=== PATIENT | male | born 1995 | race Caucasian/White ===

== ENCOUNTER 2016-11-23 07:34 | Day surgery (SDC) | payer OTHER ==
[2016-11-19 14:04] VITALS: BMI 34.9
--- NOTE | 2016-11-23 08:11 | HP ---
Admitting History and Physical - Admission Chief Complaint: Chronic otitis media History Source: Patient, Medical Record Limitations to Obtaining History: No Limitations - Smoking History Smoking history: Never smoked Have you smoked in the past 12 months: No - Alcohol/Substance Use Hx Alcohol Use: Yes (RARE) Home Medications - Allergies Allergies/Adverse Reactions: Allergies Allergy/AdvReac Type Severity Reaction Status Date / Time No Known Drug Allergies Allergy Verified 11/23/16 07:58 - Home Medications Home Medications: Ambulatory Orders Cholecalciferol (Vitamin D3) [Vitamin D3] 2,000 unit PO DAILY 11/19/16 Physical Examination Vital Signs: Vital Signs Temperature 97.8 F 11/23/16 07:55 Pulse Rate 58 L 11/23/16 07:55 Respiratory Rate 20 11/23/16 07:55 Blood Pressure 116/60 11/23/16 07:55 O2 Sat by Pulse Oximetry (%) 98 11/23/16 07:55 Constitutional: Yes: Well Nourished, No Distress, Calm Eyes: Yes: WNL HENT: Yes: Other (retracted middle ear with fluid) Cardiovascular: Yes: WNL Respiratory: Yes: WNL Gastrointestinal: Yes: WNL Musculoskeletal: Yes: WNL Extremities: Yes: WNL Problem List - Problems (1) Chronic serous otitis media of both ears Assessment/Plan: For BMT surgery Code(s): H65.23 - CHRONIC SEROUS OTITIS MEDIA, BILATERAL Assessment/Plan For BMT surgery
[2016-11-23] MEDS ORDERED: PROPOFOL 20 ML ONE ×2 (08:27)
[2016-11-23] MEDS ORDERED: MIDAZOLAM HCL 2 MG/2 ML SINGLE DOSE VIAL ONE (08:27)
[2016-11-23] MEDS ORDERED: LIDOCAINE HCL/PF 2% SDV 5ML VIAL ONE (08:27)
[2016-11-23] MEDS ORDERED: ONDANSETRON 4 MG/2 ML VIAL IVPUSH PRN (08:56)
[2016-11-23] MEDS ORDERED: ACETAMINOPHEN 325 MG TABLET (FP) PO PRN (08:56)
[2016-11-23] MEDS ORDERED: LACTATED RINGERS SOLUTION 1,000 ML IV SCH (09:00)
[2016-11-23 09:33] VITALS: TEMP 98
[2016-11-23] MEDS ORDERED: ACETAMINOPHEN 325 MG TABLET (FP) ONE (10:01)
[2016-11-23 14:20] VITALS: BP 113/65; PULSE 66
--- NOTE | 2016-11-28 17:51 | OP ---
DATE OF OPERATION: 11/23/2016 PREOPERATIVE DIAGNOSIS: Chronic otitis media, conductive hearing loss, refractory to medical treatment. This is a 21-year-old who has had many sets of tubes, who has chronic conductive hearing loss refractory to medical treatment. Risks and benefits were discussed with him and his mother preoperatively. Risks and benefits were discussed and all questions were answered. We discussed T tubes due to the chronicity of his problem into adulthood and he wants to proceed with that, knowing that there is a higher probability or possibility of perforation. PROCEDURE: The patient was brought in to the operating room and placed under anesthesia with IV sedation and mask. Microscope was brought into place and right external auditory canal was cleaned of cerumen using a curette. An anterior inferior myringotomy incision was performed. Fluid was suctioned from the middle ear space and a trimmed T tube was placed in the incision after noting it was in good position. A cotton ball was placed in external auditory canal. Patient's head was turned to the opposite side and the left ear was examined and cerumen was removed using a curette. An anterior inferior myringotomy incision was performed. Fluid was suctioned from the middle ear space with a number 7 suction. A trimmed T tube was placed through the incision, and after noting it was in good position, a cotton ball was placed in the external auditory canal. The patient was awakened in the operating room and brought to the recovery room in stable condition. KEVEN WHITTINGTON M.D. [id number]
== END 2016-11-23 11:40 | disposition home or self-care (01) ==
LOC: JASU-SURG 07:34
PROVIDERS: ATTEND Otolaryngology
PROC: 099500Z Drainage of Right Middle Ear with Drainage Device, Open Approach (ICD-10-PCS; 2016-11-23)
PROC: 099600Z Drainage of Left Middle Ear with Drainage Device, Open Approach (ICD-10-PCS; principal; 2016-11-23 08:30)
DX: H65.493 Other chronic nonsuppurative otitis media, bilateral (principal); H90.2 Conductive hearing loss, unspecified
CPT/HCPCS: 94760